=== PATIENT | male | born 2000 | race American Indian/Alaskan Native ===

== ENCOUNTER 2022-08-04 11:31 | Emergency (ER) | payer OTHER ==
[2022-08-04] MEDS ORDERED: HYDROcodone/ACETAMINOPHEN 5-325 MG TAB PO ONE (12:30)
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
[2022-08-04 14:57] VITALS: BP 126/84
== END 2022-08-04 14:54 ==
LOC: ED 11:31
DX: S00.83XA Contusion of other part of head, initial encounter (principal); S00.432A Contusion of left ear, initial encounter; F31.9 Bipolar disorder, unspecified; Y08.89XA Assault by other specified means, initial encounter; Y93.89 Activity, other specified; Y92.89 Other specified places as the place of occurrence of the external cause; Y99.8 Other external cause status
CPT/HCPCS: 70450; 70486; 71250; 72125; 99284